=== PATIENT | male | born 1980 | race Caucasian/White ===

== ENCOUNTER 2016-08-03 15:06 | Inpatient (IN) | payer OTHER ==
--- NOTE | 2016-08-03 16:29 | ED ---
Skin/Abscess/FB HPI <Tarun Nice - Last Filed: 08/03/16 17:14> - General Source: patient, RN notes reviewed Mode of arrival: wheelchair Limitations: no limitations <Mansi Mariee - Last Filed: 08/03/16 19:28> - General Chief complaint: Skin/Abscess/Foreign Body Stated complaint: Cellulitis Time Seen by Provider: 08/03/16 16:07 - History of Present Illness Initial comments: Patient is a 28-year-old male presents to the emergency room for evaluation of right leg cellulitis. Patient's mother is present with patient. Patient's mother states the patient does have a history of on and off bilateral leg cellulitis. Patient's mother states the patient was placed on Keflex a few weeks ago with relief of symptoms. Patient's mother states that she looked at patient's legs a few days ago and they looked "normal". Patient's mother states that patient was walking down the steps today with shorts on and his right leg appeared very red and swollen. Patient states that both his legs or causing him pain. Patient denies any fevers, chills, nausea, vomiting, chest pain, shortness of breath, numbness or tingling in extremities. Patient's mother does state that patient has history of diabetes. Patient's mother states the patient is on metformin. (Mansi Mariee) - Related Data Home Medications Medication Instructions Recorded Confirmed metFORMIN HCL [Glucophage] 500 mg PO BID 01/24/16 08/03/16 Allergies Allergy/AdvReac Type Severity Reaction Status Date / Time sulfamethoxazole Allergy Unknown Verified 08/03/16 16:16 [From Bactrim] trimethoprim [From Bactrim] Allergy Unknown Verified 08/03/16 16:16 Review of Systems ROS Other: All systems not noted in ROS Statement are negative. <Tarun Nice - Last Filed: 08/03/16 17:14> ROS Other: All systems not noted in ROS Statement are negative. <Mansi Mariee - Last Filed: 08/03/16 19:28> ROS Statement: Those systems with pertinent positive or pertinent negative responses have been documented in the HPI. Past Medical History Past Medical History: CVA/TIA, Diabetes Mellitus Additional Past Medical History / Comment(s): BORN WITH BRAIN DAMAGE, MENTALLY DELAYED, SLEEP APNEA History of Any Multi-Drug Resistant Organisms: None Reported Additional Past Surgical History / Comment(s): NASAL Past Psychological History: No Psychological Hx Reported Smoking Status: Current every day smoker Past Alcohol Use History: Occasional Past Drug Use History: None Reported - Past Family History Mother Family Medical History: Diabetes Mellitus <Mansi Mariee - Last Filed: 08/03/16 19:28> General Exam <Tarun Nice - Last Filed: 08/03/16 17:14> Limitations: no limitations General appearance: alert, in no apparent distress Head exam: Present: atraumatic, normocephalic, normal inspection Eye exam: Present: normal appearance ENT exam: Present: normal exam Neck exam: Present: normal inspection Respiratory exam: Present: normal lung sounds bilaterally. Absent: respiratory distress Cardiovascular Exam: Present: regular rate, normal rhythm, normal heart sounds Right Lower Leg exam: Present: swelling, erythema (Erythema and edema of right lower leg with streaking to groin, consistent with cellulitis.) Ankle exam: Present: swelling, erythema Neurovascular tendon exam: Absent: pulse deficit (2+ dorsal pedal and posterior tibial pulses), abnormal cap refill (Capillary refill less than 2 seconds) Back exam: Present: normal inspection Neurological exam: Present: alert, oriented X3, CN II-XII intact, normal gait Psychiatric exam: Present: normal affect, normal mood Skin exam: Present: warm, dry, intact, normal color. Absent: rash <Mansi Mariee - Last Filed: 08/03/16 19:28> - General Exam Comments Initial Comments: Sitting in exam room, no acute distress. (Mansi Mariee) Medical Decision Making - Lab Data Result diagrams: 08/03/16 16:23 08/03/16 16:23 <Tarun Nice - Last Filed: 08/03/16 17:14> - Lab Data Result diagrams: 08/03/16 16:23 08/03/16 16:23 <Mansi Mariee - Last Filed: 08/03/16 19:28> - Medical Decision Making Patient reevaluated by myself, Dr. Nice. Patient does have erythema of the right lower leg with streaking to the right groin. Consistent with cellulitis. Patient has elevated white blood cell count and does meet sepsis criteria. IV and about X have been started. Lactic acid level drawn. Case discussed in detail with Dr. matta, who will admit for Dr. Helena Banks. Patient and family updated. (Tarun Nice) Patient is a 36-year-old male presents emergency room for evaluation of right leg cellulitis. Elevated WBC. Patient meet sepsis criteria. Lactic acid within normal limits. Patient be started on IV antibiotics. Dr. Nice discussed case with Dr. Dickerson who agreed to admit patient. Patient and family were updated on plan. (Mansi Mariee) - Lab Data Lab Results 08/03/16 08/03/16 08/03/16 Range/Units 16:23 16:23 16:44 WBC 19.0 H (3.8-10.6) k/uL RBC 5.18 (4.30-5.90) m/uL Hgb 14.5 (13.0-17.5) gm/dL Hct 43.4 (39.0-53.0) % MCV 83.8 (80.0-100.0) fL MCH 27.9 (25.0-35.0) pg MCHC 33.3 (31.0-37.0) g/dL RDW 14.9 (11.5-15.5) % Plt Count 216 (150-450) k/uL Neutrophils % 87 % Lymphocytes % 7 % Monocytes % 4 % Eosinophils % 0 % Basophils % 0 % Neutrophils # 16.5 H (1.3-7.7) k/uL Lymphocytes # 1.3 (1.0-4.8) k/uL Monocytes # 0.7 (0-1.0) k/uL Eosinophils # 0.1 (0-0.7) k/uL Basophils # 0.1 (0-0.2) k/uL Sodium 142 (137-145) mmol/L Potassium 3.9 (3.5-5.1) mmol/L Chloride 103 (98-107) mmol/L Carbon Dioxide 25 (22-30) mmol/L Anion Gap 14 mmol/L BUN 27 H (9-20) mg/dL Creatinine 1.36 H (0.66-1.25) mg/dL Est GFR (MDRD) Af Amer >60 (>60 ml/min/1.73 sqM) Est GFR (MDRD) Non-Af 59 (>60 ml/min/1.73 sqM) Glucose 189 H (74-99) mg/dL Plasma Lactic Acid Yong (0.7-2.0) mmol/L Calcium 9.2 (8.4-10.2) mg/dL Total Bilirubin 1.1 (0.2-1.3) mg/dL AST 30 (17-59) U/L ALT 39 (21-72) U/L Alkaline Phosphatase 81 (38-126) U/L Total Protein 7.1 (6.3-8.2) g/dL Albumin 3.7 (3.5-5.0) g/dL Urine Color Yellow Urine Appearance Cloudy (Clear) Urine pH 6.0 (5.0-8.0) Ur Specific Allison 1.027 (1.001-1.035) Urine Protein 2+ H (Negative) Urine Glucose (UA) 1+ H (Negative) Urine Ketones Negative (Negative) Urine Blood Trace H (Negative) Urine Nitrate Negative (Negative) Urine Bilirubin Negative (Negative) Urine Urobilinogen 2.0 (<2.0) mg/dL Ur Leukocyte Esterase Negative (Negative) Urine RBC 1 (0-5) /hpf Urine WBC 6 H (0-5) /hpf Hyaline Casts 2 (0-2) /lpf Granular Casts 95 (0) /lpf Urine Mucus Many H (None) /hpf 08/03/16 Range/Units 17:29 WBC (3.8-10.6) k/uL RBC (4.30-5.90) m/uL Hgb (13.0-17.5) gm/dL Hct (39.0-53.0) % MCV (80.0-100.0) fL MCH (25.0-35.0) pg MCHC (31.0-37.0) g/dL RDW (11.5-15.5) % Plt Count (150-450) k/uL Neutrophils % % Lymphocytes % % Monocytes % % Eosinophils % % Basophils % % Neutrophils # (1.3-7.7) k/uL Lymphocytes # (1.0-4.8) k/uL Monocytes # (0-1.0) k/uL Eosinophils # (0-0.7) k/uL Basophils # (0-0.2) k/uL Sodium (137-145) mmol/L Potassium (3.5-5.1) mmol/L Chloride (98-107) mmol/L Carbon Dioxide (22-30) mmol/L Anion Gap mmol/L BUN (9-20) mg/dL Creatinine (0.66-1.25) mg/dL Est GFR (MDRD) Af Amer (>60 ml/min/1.73 sqM) Est GFR (MDRD) Non-Af (>60 ml/min/1.73 sqM) Glucose (74-99) mg/dL Plasma Lactic Acid Yong 1.5 (0.7-2.0) mmol/L Calcium (8.4-10.2) mg/dL Total Bilirubin (0.2-1.3) mg/dL AST (17-59) U/L ALT (21-72) U/L Alkaline Phosphatase (38-126) U/L Total Protein (6.3-8.2) g/dL Albumin (3.5-5.0) g/dL Urine Color Urine Appearance (Clear) Urine pH (5.0-8.0) Ur Specific Allison (1.001-1.035) Urine Protein (Negative) Urine Glucose (UA) (Negative) Urine Ketones (Negative) Urine Blood (Negative) Urine Nitrate (Negative) Urine Bilirubin (Negative) Urine Urobilinogen (<2.0) mg/dL Ur Leukocyte Esterase (Negative) Urine RBC (0-5) /hpf Urine WBC (0-5) /hpf Hyaline Casts (0-2) /lpf Granular Casts (0) /lpf Urine Mucus (None) /hpf Disposition <Tarun Nice - Last Filed: 08/03/16 17:14> Decision Date: 08/03/16 <Mansi Mariee - Last Filed: 08/03/16 19:28> Clinical Impression: Cellulitis of right lower leg, Sepsis Disposition: ADMITTED IP TO THIS [facility] Condition: Stable
[2016-08-03 16:47] LABS: Basophils # (A) 0.1 k/uL (0-0.2); Basophils % (A) 0 %; CH 27.4; CHCM 32.8; Eosinophils # (A) 0.1 k/uL (0-0.7); Eosinophils % (A) 0 %; HCT 43.4 % (39.0-53.0); HDW 2.62; HGB 14.5 gm/dL (13.0-17.5); Luc # (Auto) 0.39; Luc % (Auto) 2; Lymphocytes # (A) 1.3 k/uL (1.0-4.8); Lymphocytes % (A) 7 %; MCH 27.9 pg (25.0-35.0); MCHC 33.3 g/dL (31.0-37.0); MCV 83.8 fL (80.0-100.0); Mean Platelet Volume 7.9; Monocytes # (A) 0.7 k/uL (0-1.0); Monocytes % (A) 4 %; Neutrophils # (A) 16.5 k/uL (1.3-7.7); Neutrophils % (A) 87 %; RBC 5.18 m/uL (4.30-5.90); RDW 14.9 % (11.5-15.5); WBC (Perox) 19.34
[2016-08-03 16:56] LABS: ALT 39 U/L (21-72); AST 30 U/L (17-59); Alkaline Phosphatase 81 U/L (38-126); Anion Gap 14 mmol/L; Blood Urea Nitrogen 27 mg/dL (9-20); Calcium 9.2 mg/dL (8.4-10.2); Carbon Dioxide 25 mmol/L (22-30); Chloride 103 mmol/L (98-107); Glucose 189 mg/dL (74-99); Non-African American GFR(MDRD) 59 (>60 ml/min/1.73 sqM); Potassium 3.9 mmol/L (3.5-5.1); Sodium 142 mmol/L (137-145); Total Bilirubin 1.1 mg/dL (0.2-1.3); Total Protein 7.1 g/dL (6.3-8.2)
[2016-08-03 17:01] LABS: Appearance,Urine Cloudy (Clear); Bilirubin,Urine Negative (Negative); Glucose,Urine (UA) 1+ (Negative); Granular Casts,Urine 95 /lpf (0); Ketones,Urine Negative (Negative); Leukocyte Esterase,Urine Negative (Negative); Mucus,Urine Many /hpf; Nitrite,Urine Negative (Negative); Protein,Urine 2+ (Negative); RBC,Urine 1 /hpf (0-5); Specific Gravity,Urine 1.027 (1.001-1.035); UA Billing (MACRO vs. MICRO) MICRO; WBC,Urine 6 /hpf (0-5)
[2016-08-03] MEDS ORDERED: IV VANCOMYCIN PER PHARMACY 1 EACH MISC MISCELLANE PRN (17:05)
[2016-08-03] MEDS ORDERED: AMPICILLIN-SULBACTAM 3 GM in SODIUM CHLORIDE 0.9% 100 ML IVPB STA (17:05)
[2016-08-03] MEDS ORDERED: SODIUM CHLORIDE 0.9% 1,000 ML IV STA (17:13)
[2016-08-03] MEDS ORDERED: VANCOMYCIN 2,000 MG in SODIUM CHLORIDE 0.9% 500 ML IVPB STA (17:15)
[2016-08-03] MEDS ORDERED: SODIUM CHLORIDE 0.9% 1,000 ML IV SCH (18:30)
[2016-08-03] MEDS ORDERED: ACETAMINOPHEN TAB 500 MG TAB PO STA (18:56)
[2016-08-03 19:45] VITALS: BMI 37.5
[2016-08-03] MEDS: SODIUM CHLORIDE 0.9% 1,000 ML IV SCH (19:46)
[2016-08-03 20:48] LABS: Glucose,Whole Blood 153 mg/dL (75-99)
[2016-08-03 21:18] LABS: Partial Thromboplastin Time 24.4 sec (22.0-30.0); Prothrombin Time 10.5 sec (9.0-12.0)
[2016-08-03 21:28] LABS: Creatine Kinase 230 U/L (55-170)
[2016-08-03 21:41] LABS: Creatine Kinase MB 1.8 ng/mL (0.0-2.4); Troponin I <0.012 ng/mL (0.000-0.034)
[2016-08-03] MEDS: ENOXAPARIN 40 MG/0.4 ML SYRINGE SQ SCH (22:21)
[2016-08-03] MEDS: metFORMIN 500 MG TAB PO SCH (22:21)
[2016-08-03] MEDS: Acetaminophen-Codeine 300-30mg TAB PO PRN (22:22)
[2016-08-03] MEDS: INSULIN LISPRO (humaLOG) 300 UNIT/3 ML VIAL SQ SCH (23:46)
[2016-08-04 02:12] LABS: Amorphous Sediment,Urine Rare /hpf; Appearance,Urine Cloudy (Clear); Bilirubin,Urine Negative (Negative); Glucose,Urine (UA) 3+ (Negative); Ketones,Urine Negative (Negative); Leukocyte Esterase,Urine Negative (Negative); Mucus,Urine Rare /hpf; Nitrite,Urine Negative (Negative); Particle Count 10203; Protein,Urine 1+ (Negative); RBC,Urine 1 /hpf (0-5); Specific Gravity,Urine 1.028 (1.001-1.035); UA Billing (MACRO vs. MICRO) MICRO; WBC,Urine 2 /hpf (0-5)
[2016-08-04] MEDS: SODIUM CHLORIDE 0.9% 1,000 ML IV SCH ×4 (05:13→20:51)
[2016-08-04] MEDS: VANCOMYCIN 2,000 MG in SODIUM CHLORIDE 0.9% 500 ML IVPB SCH ×2 (05:30→18:21)
[2016-08-04 07:51] LABS: Anion Gap 9 mmol/L; Blood Urea Nitrogen 18 mg/dL (9-20); Calcium 8.1 mg/dL (8.4-10.2); Carbon Dioxide 25 mmol/L (22-30); Chloride 106 mmol/L (98-107); Glucose 171 mg/dL (74-99); Non-African American GFR(MDRD) >60 (>60 ml/min/1.73 sqM); Potassium 3.8 mmol/L (3.5-5.1); Sodium 140 mmol/L (137-145)
[2016-08-04] MEDS: ENOXAPARIN 40 MG/0.4 ML SYRINGE SQ SCH (08:59)
[2016-08-04] MEDS: metFORMIN 500 MG TAB PO SCH ×2 (08:59→18:22)
[2016-08-04] MEDS: INSULIN LISPRO (humaLOG) 300 UNIT/3 ML VIAL SQ SCH ×4 (09:00→20:29)
[2016-08-04 11:52] LABS: Glucose,Whole Blood 152 mg/dL (75-99)
--- NOTE | 2016-08-04 12:14 | HP ---
DATE OF ADMISSION: 08/03/2016 PRESENTING COMPLAINT: Cellulitis. HISTORY OF PRESENTING COMPLAINT: This is a 36-year-old patient of Dr. Decker who is mentally disabled from , history of diabetes, has had prior cellulitis but has increasing redness especially at the right lower extremity, painful and redness going up to the thighs. The patient lives with his mother. Patient is slow to give history but able to give a basic history. REVIEW OF SYSTEMS: Febrile, tired. HEENT: None. RESPIRATORY: None. CARDIOVASCULAR: None. GASTROINTESTINAL: None. GENITOURINARY: None. MUSCULOSKELETAL: As above. DERMATOLOGICAL: Above. LYMPHATICS: None. PSYCHIATRY: Patient is slow. NEUROLOGICAL: None. PAST MEDICAL HISTORY: Questionable stroke, diabetes mellitus type 2, born with brain damage, mentally delayed, sleep apnea. SOCIAL HISTORY: Smoker, lives with his mother. Family history of diabetes. HOME MEDICATIONS: Metformin 500 mg p.o. b.i.d. ALLERGIES TO BACTRIM. On examination, temperature 101.4, pulse 93, respirations 18, blood pressure 123/57, pulse ox 98% on room air. GENERAL APPEARANCE: Overweight, body mass index of 37, lying in bed. EYES: Pupils equal. Conjunctivae normal. Strabismus is present. NECK: JVD not raised. Mass not palpable. RESPIRATORY: Effort normal. Lungs are clear. CARDIOVASCULAR: First and second sounds normal. Mild edema. ABDOMEN: Soft. Liver and spleen not palpable. LYMPHATIC: No lymph node palpable in the neck or axillae. PSYCHIATRY: Patient able to answer simple questions. DERMATOLOGICAL: Patient has dry skin and cellulitis especially of the right lower extremity extending up to the mid-thigh, scaly skin. INVESTIGATIONS: White count 19, hemoglobin 18.5. Potassium 3.9. BUN 27, creatinine 1.36. ASSESSMENT: 1. Acute severe cellulitis with sepsis, present at admission in a diabetic. 2. Diabetes mellitus type 2, on oral hypoglycemic. 3. Acute renal failure. Patient's previous creatinine was 0.9 in January of last year. 4. Obesity, body mass index of 37.5. 5. Developmental delay from . PLAN: Patient started on vancomycin, pharmacy to dose vancomycin. Continue Silvadene cream. Metformin will be resumed. Will hydrate the patient. Repeat electrolytes. Care was discussed with the patient. Questions were answered. DVT prophylaxis.
[2016-08-04 13:25] LABS: Hemoglobin A1C 6.8 % (4.2-6.1)
[2016-08-04 17:39] LABS: Glucose,Whole Blood 124 mg/dL (75-99)
[2016-08-04 20:12] LABS: Glucose,Whole Blood 183 mg/dL (75-99)
[2016-08-05] MEDS: SODIUM CHLORIDE 0.9% 1,000 ML IV SCH ×4 (04:56→23:30)
[2016-08-05] MEDS ORDERED: VANCOMYCIN TROUGH DUE 1 EACH MISC MISCELLANE ONE (05:00)
[2016-08-05] MEDS: VANCOMYCIN 2,000 MG in SODIUM CHLORIDE 0.9% 500 ML IVPB SCH (05:36)
[2016-08-05 05:54] LABS: Basophils # (A) 0.1 k/uL (0-0.2); Basophils % (A) 0 %; CH 27.1; CHCM 32.1; Eosinophils # (A) 0.2 k/uL (0-0.7); Eosinophils % (A) 1 %; HCT 35.3 % (39.0-53.0); HDW 2.52; HGB 11.6 gm/dL (13.0-17.5); Luc # (Auto) 0.38; Luc % (Auto) 2; Lymphocytes % (A) 12 %; MCH 27.9 pg (25.0-35.0); MCHC 32.8 g/dL (31.0-37.0); MCV 84.9 fL (80.0-100.0); Mean Platelet Volume 7.7; Monocytes % (A) 6 %; Neutrophils # (A) 12.4 k/uL (1.3-7.7); Neutrophils % (A) 78 %; RBC 4.16 m/uL (4.30-5.90); RDW 14.8 % (11.5-15.5); WBC 15.9 k/uL (3.8-10.6)
[2016-08-05 05:58] LABS: Anion Gap 9 mmol/L; Blood Urea Nitrogen 10 mg/dL (9-20); Calcium 8.1 mg/dL (8.4-10.2); Carbon Dioxide 23 mmol/L (22-30); Chloride 105 mmol/L (98-107); Glucose 141 mg/dL (74-99); Non-African American GFR(MDRD) >60 (>60 ml/min/1.73 sqM); Potassium 3.6 mmol/L (3.5-5.1); Sodium 137 mmol/L (137-145)
[2016-08-05] MEDS: metFORMIN 500 MG TAB PO SCH ×2 (07:24→17:58)
[2016-08-05] MEDS: Acetaminophen-Codeine 300-30mg TAB PO PRN (07:24)
[2016-08-05] MEDS: INSULIN LISPRO (humaLOG) 300 UNIT/3 ML VIAL SQ SCH ×4 (07:45→21:01)
[2016-08-05 08:15] LABS: Glucose,Whole Blood 151 mg/dL (75-99)
[2016-08-05] MEDS: ENOXAPARIN 40 MG/0.4 ML SYRINGE SQ SCH (09:50)
--- NOTE | 2016-08-05 11:10 | PN ---
DATE OF SERVICE: 08/04/2016 PRESENTING COMPLAINT: Cellulitis. INTERVAL HISTORY: This patient presented with severe cellulitis right lower extremity, slow to respond, getting Silvadene cream, antibiotics. Pain is still present. Tolerating his diet. Review of systems done for constitutional, cardiovascular, GI, pulmonary; relevant findings as above. Current medications are reviewed that include IV vancomycin. On examination, temperature T-max 101.4, pulse 80, respirations 18, blood pressure 120/68, pulse ox 94% on room air. GENERAL APPEARANCE: Lying in bed, awake. EYES: Pupils equal. Conjunctivae normal. NECK: JVD not raised. Mass not palpable. RESPIRATORY: Effort normal. Lungs are clear. CARDIOVASCULAR: First and second sounds normal. No edema. ABDOMEN: Soft, nontender. Liver and spleen not palpable. Right lower extremity cellulitis present, slow to respond. INVESTIGATIONS: Potassium 3.2, BUN and creatinine normal. Accu-Cheks are noted. Blood cultures negative until now. ASSESSMENT: 1. Acute severe cellulitis with sepsis present on admission in a diabetic, slow to respond. 2. Type 2 diabetes mellitus, on oral hyperglycemics. 3. Acute renal failure, probably acute tubular necrosis from sepsis, present on admission with improvement. 4. Obesity, body mass index 37.5. 5. ( ) from . PLAN: Continue current medication and treatment plan. Care was discussed with the patient. Follow.
[2016-08-05 12:25] LABS: Glucose,Whole Blood 148 mg/dL (75-99)
[2016-08-05 17:32] LABS: Glucose,Whole Blood 161 mg/dL (75-99)
[2016-08-05] MEDS: VANCOMYCIN 2,250 MG in SODIUM CHLORIDE 0.9% 500 ML IVPB SCH (18:10)
[2016-08-05] MEDS: SILVER sulfADIAZINE Cream 400 GM 1 APPLIC APPLIC TOPICAL SCH (19:52)
[2016-08-05] MEDS: NAPROXEN 250 MG TAB PO SCH (19:52)
[2016-08-05 20:40] LABS: Glucose,Whole Blood 151 mg/dL (75-99)
--- NOTE | 2016-08-05 22:56 | PN ---
DATE OF SERVICE: 08/05/2016 PRESENTING COMPLAINT: Right leg cellulitis. INTERVAL HISTORY: Patient presented with severe cellulitis, right lower extremity, which is getting a bit better with Silvadene cream and antibiotics. Pain is getting better controlled. Review of systems done for constitutional, cardiovascular, GI, pulmonary; relevant findings as above. Current medications are reviewed that include IV vancomycin. On examination, temperature 100.2, pulse 56, respiration 20, blood pressure 116/61, pulse ox 92% on room air. GENERAL APPEARANCE: Lying in bed. Comfortable. EYES: Pupils equal. Conjunctivae normal. NECK: JVD not raised. Mass not palpable. RESPIRATORY: Effort normal. Lungs are clear. CARDIOVASCULAR: First and second sounds normal. No edema. ABDOMEN: Soft, nontender. Liver and spleen not palpable. RIGHT LOWER EXTREMITY: Decreased redness. Decreased tenderness and swelling. PSYCHIATRY: Alert and oriented x3. Mood and affect normal. INVESTIGATIONS: White count 15.9. Potassium 3.6. BUN and creatinine are normal. ASSESSMENT: 1. Acute severe cellulitis with sepsis, right lower extremity, present on admission, in a diabetic. Slowly improving clinically but slow to respond. 2. Diabetes mellitus, type 2, on oral hypoglycemic. 3. Acute renal failure, probably acute tubular necrosis from sepsis, present on admission, with improvement. 4. Obesity; body mass index of 37.5. 5. Mental retardation from . PLAN: Continue with current medication and treatment plan. I will also have the nurse apply an Sarath wrap and use Silvadene the entire length. Naproxen will be added for anti-inflammatory effect. Will follow.
[2016-08-06] MEDS: SODIUM CHLORIDE 0.9% 1,000 ML IV SCH ×2 (05:22→13:18)
[2016-08-06] MEDS: VANCOMYCIN 2,250 MG in SODIUM CHLORIDE 0.9% 500 ML IVPB SCH ×2 (05:26→17:38)
[2016-08-06 07:29] LABS: Glucose,Whole Blood 138 mg/dL (75-99)
[2016-08-06] MEDS: INSULIN LISPRO (humaLOG) 300 UNIT/3 ML VIAL SQ SCH ×4 (07:44→21:29)
[2016-08-06] MEDS: ENOXAPARIN 40 MG/0.4 ML SYRINGE SQ SCH (07:46)
[2016-08-06] MEDS: metFORMIN 500 MG TAB PO SCH ×2 (07:46→17:39)
[2016-08-06] MEDS: NAPROXEN 250 MG TAB PO SCH ×2 (07:46→21:28)
[2016-08-06] MEDS: SILVER sulfADIAZINE Cream 400 GM 1 APPLIC APPLIC TOPICAL SCH ×2 (07:47→21:30)
[2016-08-06 08:58] LABS: Basophils # (A) 0.1 k/uL (0-0.2); Basophils % (A) 1 %; CH 27.1; CHCM 31.6; Eosinophils # (A) 0.4 k/uL (0-0.7); Eosinophils % (A) 3 %; HCT 37.1 % (39.0-53.0); HDW 2.53; HGB 11.8 gm/dL (13.0-17.5); Luc # (Auto) 0.41; Luc % (Auto) 3; Lymphocytes # (A) 2.1 k/uL (1.0-4.8); Lymphocytes % (A) 14 %; MCH 27.3 pg (25.0-35.0); MCHC 31.7 g/dL (31.0-37.0); MCV 86.2 fL (80.0-100.0); Mean Platelet Volume 7.9; Monocytes # (A) 0.9 k/uL (0-1.0); Monocytes % (A) 6 %; Neutrophils # (A) 10.9 k/uL (1.3-7.7); Neutrophils % (A) 74 %; RDW 14.7 % (11.5-15.5); WBC 14.8 k/uL (3.8-10.6); WBC (Perox) 13.98
[2016-08-06 11:31] LABS: Glucose,Whole Blood 136 mg/dL (75-99)
[2016-08-06 17:26] LABS: Glucose,Whole Blood 106 mg/dL (75-99)
[2016-08-06 20:11] LABS: Glucose,Whole Blood 135 mg/dL (75-99)
[2016-08-07] MEDS: SODIUM CHLORIDE 0.9% 1,000 ML IV SCH ×3 (05:23→12:22)
[2016-08-07] MEDS: VANCOMYCIN 2,250 MG in SODIUM CHLORIDE 0.9% 500 ML IVPB SCH ×2 (05:25→17:25)
[2016-08-07 07:12] LABS: Glucose,Whole Blood 116 mg/dL (75-99)
[2016-08-07 08:12] LABS: Anion Gap 9 mmol/L; Blood Urea Nitrogen 10 mg/dL (9-20); Calcium 8.2 mg/dL (8.4-10.2); Carbon Dioxide 24 mmol/L (22-30); Chloride 110 mmol/L (98-107); Glucose 127 mg/dL (74-99); Non-African American GFR(MDRD) >60 (>60 ml/min/1.73 sqM); Potassium 4.2 mmol/L (3.5-5.1); Sodium 143 mmol/L (137-145)
[2016-08-07 08:14] LABS: Basophils # (A) 0.1 k/uL (0-0.2); Basophils % (A) 1 %; CH 27.1; CHCM 31.7; Eosinophils # (A) 0.4 k/uL (0-0.7); Eosinophils % (A) 3 %; HCT 36.3 % (39.0-53.0); HGB 11.6 gm/dL (13.0-17.5); Luc % (Auto) 3; Lymphocytes # (A) 2.1 k/uL (1.0-4.8); Lymphocytes % (A) 14 %; MCH 27.3 pg (25.0-35.0); MCHC 31.9 g/dL (31.0-37.0); MCV 85.7 fL (80.0-100.0); Mean Platelet Volume 7.4; Monocytes # (A) 0.8 k/uL (0-1.0); Monocytes % (A) 6 %; Neutrophils # (A) 10.7 k/uL (1.3-7.7); Neutrophils % (A) 74 %; RBC 4.24 m/uL (4.30-5.90); RDW 14.6 % (11.5-15.5); WBC 14.5 k/uL (3.8-10.6); WBC (Perox) 15.32
[2016-08-07] MEDS: SILVER sulfADIAZINE Cream 400 GM 1 APPLIC APPLIC TOPICAL SCH ×2 (08:56→21:02)
[2016-08-07] MEDS: metFORMIN 500 MG TAB PO SCH ×2 (08:56→17:25)
[2016-08-07] MEDS: INSULIN LISPRO (humaLOG) 300 UNIT/3 ML VIAL SQ SCH ×4 (08:56→21:01)
[2016-08-07] MEDS: ENOXAPARIN 40 MG/0.4 ML SYRINGE SQ SCH (08:56)
[2016-08-07] MEDS: NAPROXEN 250 MG TAB PO SCH ×2 (08:57→21:02)
--- NOTE | 2016-08-07 11:24 | PN ---
DATE OF SERVICE: 08/06/2016 PRESENTING COMPLAINT: Right leg cellulitis. INTERVAL HISTORY: This patient with right leg cellulitis is getting better. Pain is much better controlled, ( ) Naproxen. Getting Silvadene cream. Tolerating his diet. REVIEW OF SYSTEMS: done for constitutional, cardiovascular, GI, pulmonary; relevant findings as above. Current medications are reviewed. On examination, temperature 99.6, pulse 75, respiratory rate 18, blood pressure 153/70, pulse ox 92% on room air. GENERAL APPEARANCE: Lying in bed, comfortable. EYES: Pupils equal. Conjunctivae normal. NECK: JVD not raised. Mass not palpable. RESPIRATORY: Effort normal. Lungs are clear. CARDIOVASCULAR: First and second sounds normal. No edema. ABDOMEN: Soft, nontender. Liver and spleen not palpable. PSYCHIATRY: Awake, answering questions. Right lower extremity cellulitis much improved. INVESTIGATIONS: White count 14.8, hemoglobin 11.8 Accu-Cheks are noted. ASSESSMENT: 1. Acute severe cellulitis with sepsis right lower extremity present on admission, which continues to improve. White count continues to come down. 2. Type 2 diabetes mellitus, on oral hypoglycemics. 3. Acute renal failure, probably acute tubular necrosis from sepsis present on admission, resolved. 4. Obesity, body mass index of 37.5. 5. Mental retardation from . PLAN: Continue current medication and treatment plan. The patient definitely doing much better.
[2016-08-07 12:14] LABS: Glucose,Whole Blood 132 mg/dL (75-99)
[2016-08-07] MEDS: FUROSEMIDE 10 MG/ML 2 ML VIAL IV SCH ×2 (12:47→17:25)
[2016-08-07 17:01] LABS: Glucose,Whole Blood 123 mg/dL (75-99)
[2016-08-07 20:29] LABS: Glucose,Whole Blood 119 mg/dL (75-99)
[2016-08-08] MEDS ORDERED: VANCOMYCIN TROUGH DUE 1 EACH MISC MISCELLANE ONE (05:30)
[2016-08-08] MEDS: VANCOMYCIN 2,250 MG in SODIUM CHLORIDE 0.9% 500 ML IVPB SCH (05:58)
[2016-08-08 07:40] LABS: Glucose,Whole Blood 110 mg/dL (75-99)
[2016-08-08 07:51] VITALS: BP 118/58; RESP 18; TEMP 97.3
[2016-08-08] MEDS: metFORMIN 500 MG TAB PO SCH (08:26)
[2016-08-08] MEDS: INSULIN LISPRO (humaLOG) 300 UNIT/3 ML VIAL SQ SCH ×2 (08:26→11:42)
[2016-08-08] MEDS: NAPROXEN 250 MG TAB PO SCH (08:27)
[2016-08-08] MEDS: ENOXAPARIN 40 MG/0.4 ML SYRINGE SQ SCH (08:27)
[2016-08-08 11:42] LABS: Glucose,Whole Blood 110 mg/dL (75-99)
[2016-08-08] MEDS: SILVER sulfADIAZINE Cream 400 GM 1 APPLIC APPLIC TOPICAL SCH (11:42)
[2016-08-08 12:03] LABS: CH 27.3; CHCM 31.3; HCT 38.3 % (39.0-53.0); HDW 2.53; HGB 11.9 gm/dL (13.0-17.5); Hypochromasia Slight; MCH 27.2 pg (25.0-35.0); MCV 87.7 fL (80.0-100.0); Mean Platelet Volume 9.5; RBC 4.36 m/uL (4.30-5.90); RDW 14.9 % (11.5-15.5); WBC 13.7 k/uL (3.8-10.6)
[2016-08-08 12:18] LABS: Anion Gap 11 mmol/L; Blood Urea Nitrogen 11 mg/dL (9-20); Calcium 8.4 mg/dL (8.4-10.2); Carbon Dioxide 27 mmol/L (22-30); Chloride 104 mmol/L (98-107); Glucose 121 mg/dL (74-99); Non-African American GFR(MDRD) >60 (>60 ml/min/1.73 sqM); Sodium 142 mmol/L (137-145)
--- NOTE | 2016-08-08 14:52 | PN ---
DATE OF SERVICE: 08/07/2016 PRESENTING COMPLAINT: Right leg cellulitis. INTERVAL HISTORY: This patient was seen by me yesterday morning on 08/07/2016. I am doing the dictation today. Patient presented with right leg cellulitis. The patient has been getting some edema, probably from IV fluids. Pain is better controlled. Tolerating his diet. Review of systems done for constitutional, cardiovascular, GI, pulmonary; relevant findings as above. Current medications are reviewed. On examination, temperature 97.4, pulse 94, respirations 18, blood pressure 119/62, pulse ox 95% on room air. GENERAL APPEARANCE: Lying in bed, comfortable. EYES: Pupils equal. Conjunctivae normal. NECK: JVD not raised. Mass not. RESPIRATORY: Effort normal. LUNGS: Clear. CARDIOVASCULAR: First and second sounds are normal. Mild edema. ABDOMEN: Soft, nontender. Liver and spleen not palpable. PSYCHIATRY: Awake, answering questions. Right leg redness. White count 14.5. Potassium 4.2. ASSESSMENT: 1. Acute severe cellulitis with sepsis right lower extremity, present on admission, continues to improve slowly. 2. Diabetes mellitus type 2, on oral hypoglycemic. 3. Acute renal failure, probably acute tubular necrosis from sepsis, present on admission, resolved. 4. Obesity, body mass index of 37.5. 5. Mental retardation, from . 6. A bit of fluid overload from IV fluids. PLAN: Will discontinue the IV fluids and give 2 small doses of Lasix 20. Repeat labs in the morning.
[2016-08-08 16:50] VITALS: PULSE 64
--- NOTE | 2016-08-09 09:23 | DS ---
DATE OF ADMISSION: 08/03/2016 DATE OF DISCHARGE: 08/08/2016 FINAL DIAGNOSIS(ES): 1. Acute severe cellulitis with sepsis right lower extremity present at admission. 2. Diabetes mellitus type 2, on oral hypoglycemic. 3. Acute renal failure, probably acute tubular necrosis from sepsis, present on admission. 4. Obesity, body mass index of 37.5. Follow with family doctor as an outpatient. 5. Mental retardation from . 6. Fluid overload from IV fluids. HOSPITAL COURSE: This patient presented with significant cellulitis right lower extremity has done very well with Silvadene cream and vancomycin. The patient's blood culture was negative. Patient also used Kerlix and Sarath wrap. On examination, the right lower extremity redness greatly improved. DISCHARGE MEDICATIONS: 1. Metformin 500 mg p.o. b.i.d. 2. Doxycycline 100 mg p.o. q.12 20 capsules. 3. Naproxen 250 mg p.o. b.i.d. 14 tablets. 4. Silvadene cream topical b.i.d. with Kerlix and Sarath wrap. Follow with Dr. Brianne Dillon in one week. Dressing changes as ordered.
== END 2016-08-08 18:21 | disposition home or self-care (01) | DRG 871 ==
LOC: EC 15:06 → 5MS5E 18:29
PROVIDERS: ADMIT Hospitalist; ATTEND Hospitalist
DX: A41.9 Sepsis, unspecified organism (principal); N17.0 Acute kidney failure with tubular necrosis; L03.115 Cellulitis of right lower limb; E87.70 Fluid overload, unspecified; E11.9 Type 2 diabetes mellitus without complications; E66.9 Obesity, unspecified; F17.200 Nicotine dependence, unspecified, uncomplicated; G47.30 Sleep apnea, unspecified; R65.20 Severe sepsis without septic shock; F79 Unspecified intellectual disabilities; T50.995A Adverse effect of other drugs, medicaments and biological substances, initial encounter; Z68.37 Body mass index [BMI] 37.0-37.9, adult; Z88.2 Allergy status to sulfonamides; Z88.1 Allergy status to other antibiotic agents; Z79.84 Long term (current) use of oral hypoglycemic drugs
CPT/HCPCS: 36415; 80048; 80053; 80202; 81001; 82533; 82550; 82553; 83036; 83605; 84484; 85025; 85027; 85610; 85730; 87040; 87086; 96365; 99284

== ENCOUNTER 2016-08-19 15:13 | Inpatient (IN) | payer OTHER ==
[2016-08-19] MEDS ORDERED: IV VANCOMYCIN PER PHARMACY 1 EACH MISC MISCELLANE PRN (16:02)
[2016-08-19] MEDS ORDERED: IBUPROFEN 600 MG TAB PO STA (16:02)
[2016-08-19] MEDS ORDERED: VANCOMYCIN 2,000 MG in SODIUM CHLORIDE 0.9% 500 ML IVPB STA (16:10)
[2016-08-19] MEDS: SODIUM CHLORIDE 0.9% 1,000 ML IV SCH ×4 (16:19→20:32)
--- NOTE | 2016-08-19 16:33 | ED ---
General Adult HPI - General Chief complaint: Extremity Injury, Lower Stated complaint: leg infection-sent by Time Seen by Provider: 08/19/16 15:40 Source: patient, family, RN notes reviewed, old records reviewed Mode of arrival: ambulatory Limitations: no limitations - History of Present Illness Initial comments: Chief complaint history of present illness a 36-year-old mentally challenged male here with his mother. Recently the patient was in hospital because of cellulitis to his right lower extremity. He is on doxycycline at home. Is actually improving. The visiting nurse came to the home today over a large pointing abscess in the right popliteal area medial aspect. With localized induration and cellulitis. - Related Data Home Medications Medication Instructions Recorded Confirmed SILVER sulfADIAZINE CREAM 1 applic TOPICAL DAILY 08/19/16 08/19/16 [Silvadene Cream] Allergies Allergy/AdvReac Type Severity Reaction Status Date / Time sulfamethoxazole Allergy Unknown Verified 08/19/16 16:06 [From Bactrim] trimethoprim [From Bactrim] Allergy Unknown Verified 08/19/16 16:06 Review of Systems ROS Statement: Those systems with pertinent positive or pertinent negative responses have been documented in the HPI. Review of systems patient denies headache chest pain shortness breath GI/ problems. All systems are reviewed. Past medical problems significant for CVA , medication treated diabetes mellitus, he was born with brain damage. But is high functioning MR. Surgeries include soft palate for snoring. Family history grandmother had lung cancer. Patient has ALLERGIES to sulfamethoxazole. He does smoke trying to stop mother trying to help. Drinks alcohol rarely socially. ROS Other: All systems not noted in ROS Statement are negative. Past Medical History Past Medical History: CVA/TIA, Diabetes Mellitus Additional Past Medical History / Comment(s): BORN WITH BRAIN DAMAGE, MENTALLY DELAYED, SLEEP APNEA History of Any Multi-Drug Resistant Organisms: None Reported Additional Past Surgical History / Comment(s): NASAL Past Anesthesia/Blood Transfusion Reactions: Unable to Obtain Past Psychological History: No Psychological Hx Reported Smoking Status: Current every day smoker Past Alcohol Use History: Occasional Past Drug Use History: None Reported - Past Family History Mother Family Medical History: Diabetes Mellitus General Exam - General Exam Comments Initial Comments: General: The patient is awake and alert, in no distress, and does not appear acutely ill. Has no complaints. Does not even saline large abscess behind his right knee is uncomfortable. States he never noticed it. Patient is mentally challenged. Vital signs showed temperature 97.7 pulse 90 respiratory rate 16 pulse ox 90% room air blood pressure 117/68 Eye: Pupils are equal, round and reactive to light, extra-ocular movements are intact ; there is normal conjunctiva bilaterally. No signs of icterus. Ears, nose, mouth and throat: There are moist mucous membranes Neck: The neck is supple, there is no tenderness Cardiovascular: There is a regular rate and rhythm. No murmur, rub or gallop is appreciated. Respiratory: Lungs are clear to auscultation, respirations are non-labored, breath sounds are equal. No wheezes, stridor, rales, or rhonchi. Gastrointestinal: Soft, non-distended, non-tender abdomen without masses or organomegaly noted. There is no rebound or guarding present. No CVA tenderness. Bowel sounds are unremarkable. Back: There is no tenderness to palpation in the midline. There is no obvious deformity. No rashes noted. Musculoskeletal: Cellulitis of the right lower extremity is significantly improved after discharging continues on doxycycline but he has developed since discharge a large abscess in the right popliteal region. With localized cellulitis and induration. Neurological: Patient walks talks no evidence of any neurological deficits. He does have mental retardation. Skin: Improving cellulitis right lower extremity. New area of cellulitis and abscess right popliteal region. Limitations: no limitations Course Vital Signs 08/19/16 08/19/16 08/19/16 15:22 17:11 18:49 Temperature 97.7 F 98.4 F 98.6 F Pulse Rate 90 79 72 Respiratory 16 16 16 Rate Blood Pressure 117/68 132/86 124/68 O2 Sat by Pulse 98 95 99 Oximetry Procedures - Procedures Initial comment: Procedure; I&D of an abscess in the medial aspect of the right popliteal area. Patient did not notice this but is visiting nurse did. The area was cleaned well Betadine normal saline solution. Anesthetized with 1% lidocaine. A #11 blade was then used to make a stellate incision. Small amount of pus was removed cultured. The cavity created was packed with iodoform gauze approximately 14 inches.. Bandage applied. Patient had already received IV vancomycin. Dr. Kirk Medical Decision Making - Medical Decision Making Medical decision-making the patient's potassium is 4.9 BUN 30 creatinine 119 with a be GFR 60. Glucose 112 Patient had an I&D of a large abscess on the back of his right knee. He is currently being treated with doxycycline for extensive cellulitis which was improving to the right lower leg. The patient received IV vancomycin in emergency room prior to incision and drainage was done sample was taken for C& S. Patient be admitted the hospital for further management with IV Vanco - Lab Data Result diagrams: 08/19/16 15:25 Lab Results 08/19/16 Range/Units 15:25 Sodium 143 (137-145) mmol/L Potassium 4.9 (3.5-5.1) mmol/L Chloride 106 (98-107) mmol/L Carbon Dioxide 25 (22-30) mmol/L Anion Gap 12 mmol/L BUN 30 H (9-20) mg/dL Creatinine 1.19 (0.66-1.25) mg/dL Est GFR (MDRD) Af Amer >60 (>60 ml/min/1.73 sqM) Est GFR (MDRD) Non-Af >60 (>60 ml/min/1.73 sqM) Glucose 112 H (74-99) mg/dL Calcium 9.8 (8.4-10.2) mg/dL Total Bilirubin 0.6 (0.2-1.3) mg/dL AST 16 L (17-59) U/L ALT 28 (21-72) U/L Alkaline Phosphatase 71 (38-126) U/L Total Protein 8.8 H (6.3-8.2) g/dL Albumin 3.9 (3.5-5.0) g/dL Disposition Clinical Impression: Cellulitis of right leg, Abscess of popliteal region Disposition: ADMITTED IP TO THIS HOSP Condition: Stable
[2016-08-19 16:50] LABS: ALT 28 U/L (21-72); AST 16 U/L (17-59); Alkaline Phosphatase 71 U/L (38-126); Anion Gap 12 mmol/L; Blood Urea Nitrogen 30 mg/dL (9-20); Calcium 9.8 mg/dL (8.4-10.2); Carbon Dioxide 25 mmol/L (22-30); Chloride 106 mmol/L (98-107); Glucose 112 mg/dL (74-99); Non-African American GFR(MDRD) >60 (>60 ml/min/1.73 sqM); Potassium 4.9 mmol/L (3.5-5.1); Sodium 143 mmol/L (137-145); Total Bilirubin 0.6 mg/dL (0.2-1.3); Total Protein 8.8 g/dL (6.3-8.2)
[2016-08-19] MEDS ORDERED: NALOXONE 0.4 MG/ML 1 ML VIAL IV PRN (18:55)
[2016-08-19 20:52] LABS: Glucose,Whole Blood 91 mg/dL (75-99)
[2016-08-19 20:55] VITALS: BMI 34.4
[2016-08-20] MEDS: VANCOMYCIN 2,000 MG in SODIUM CHLORIDE 0.9% 500 ML IVPB SCH ×2 (05:11→16:59)
[2016-08-20] MEDS: ACETAMINOPHEN TAB 325 MG TAB PO PRN (05:11)
[2016-08-20 07:10] LABS: Glucose,Whole Blood 114 mg/dL (75-99)
[2016-08-20] MEDS: SODIUM CHLORIDE 0.9% 1,000 ML IV SCH ×3 (08:45→21:43)
[2016-08-20 11:18] LABS: Anion Gap 9 mmol/L; Blood Urea Nitrogen 21 mg/dL (9-20); Calcium 9.3 mg/dL (8.4-10.2); Carbon Dioxide 27 mmol/L (22-30); Chloride 103 mmol/L (98-107); Glucose 123 mg/dL (74-99); Non-African American GFR(MDRD) >60 (>60 ml/min/1.73 sqM); Potassium 4.7 mmol/L (3.5-5.1); Sodium 139 mmol/L (137-145)
[2016-08-20 12:38] LABS: Glucose,Whole Blood 118 mg/dL (75-99)
[2016-08-20 13:56] LABS: Basophils # (A) 0.1 k/uL (0-0.2); Basophils % (A) 2 %; CH 26.9; CHCM 31.5; Eosinophils # (A) 0.2 k/uL (0-0.7); Eosinophils % (A) 3 %; HCT 40.5 % (39.0-53.0); HGB 12.8 gm/dL (13.0-17.5); Luc # (Auto) 0.25; Luc % (Auto) 3; Lymphocytes # (A) 2.3 k/uL (1.0-4.8); Lymphocytes % (A) 32 %; MCH 27.1 pg (25.0-35.0); MCHC 31.7 g/dL (31.0-37.0); MCV 85.4 fL (80.0-100.0); Monocytes # (A) 0.4 k/uL (0-1.0); Monocytes % (A) 6 %; Neutrophils % (A) 54 %; RBC 4.74 m/uL (4.30-5.90); RDW 14.3 % (11.5-15.5); WBC 7.4 k/uL (3.8-10.6); WBC (Perox) 7.49
--- NOTE | 2016-08-20 13:56 | HP ---
DATE OF ADMISSION: Patient is a 36-year-old mentally challenged, was brought in by mother because of increasing cellulitis of the right lower extremity along with abscess in the right popliteal site area, which was drained in ER and postsurgically packed and patient was started on vancomycin. Patient does not appear to have any fevers, chills. I do not have any CBC available at this point of time, which was ordered and patient apparently was sent home on doxycycline with improvement and patient does have multiple skin breakdowns and bilateral lower limb chronic venostasis, definitely high risk for recurrent cellulitis. Patient does have localized of temperature along with edema of the bilateral lower extremities. I did not appreciate any inguinal lymphadenopathy. Home medications include Silver-Silver sulfadiazine cream. ROS: Unable to obtain due to his clinical condition except for those mentioned. PAST MEDICAL HISTORY: CVA/TIA, diabetes mellitus. Patient is on oral hyperglycemic agents for that. SOCIAL HISTORY: Patient apparently is a smoker. Denied any alcohol abuse or any drug abuse. FAMILY HISTORY: Mother has type 2 diabetes mellitus. PHYSICAL EXAMINATION: Temperature 97.2, pulse of 65, respiratory rate of 20, blood pressure is 115/69, saturating at 93% on room air. GENERAL: The patient is alert, unable to assess orientation. HEENT: Pupils are round and equally reacting to light. EOMI. No scleral icterus. No conjunctival pallor. Normocephalic, atraumatic. No pharyngeal erythema. No thyromegaly. CARDIOVASCULAR: S1 and S2 present. No murmurs, rubs, or gallops. PULMONARY: Chest is clear to auscultation, no wheezing or crackles. ABDOMEN: Soft, nontender, nondistended, normoactive bowel sounds. No palpable organomegaly. MUSCULOSKELETAL: No joint swelling or deformity. EXTREMITIES: No cyanosis, clubbing, or pedal edema. NEUROLOGICAL: Gross neurological examination did not reveal any focal deficits. Right lower extremity extensive cellulitis of the right lower extremity with chronic venostasis dermatosis along with edema of the bilateral lower extremities. In the right popliteal fossa there is an abscess that was drained and patient has extensive cellulitis predominantly in the right lower extremity with localized of temperature and edema. LABORATORY DATA: I only have basic metabolic profile available. Borderline kidney function with creatinine 1.16 and BUN of 21. I cannot really assess for CKD yet. ASSESSMENT AND PLAN: 1. Abscess in the right popliteal foci along with cellulitis, extensive to of the right lower extremity. Patient was started on vancomycin. I will consult Infectious Disease because of recurrence of cellulitis and patient will need extensive and good local wound care. I will stop the IV fluids as patient is not severely septic at this point of time and patient has pedal edema. He may even need Lasix and compression socks as edema precipitates his cellulitis due to chronic venostasis and dermatosis. 2. Bilateral lower extremity cellulitis, probably due to chronic venostasis due to obesity and venostasis dermatosis secondary to that. 3. Type 2 diabetes mellitus, mild acute renal failure, which probably improved by now with IV fluids. 4. Morbid obesity. 5. Developmental delay with supportive care. Continue with antibiotics. Consult Infectious Disease, local wound care. Check white blood cell count. MTDD
[2016-08-20] MEDS: HEPARIN SODIUM,PORCINE 5,000 UNIT/ML 1 ML VIAL SQ SCH ×2 (16:59→23:54)
[2016-08-20] MEDS: metFORMIN 500 MG TAB PO SCH (21:43)
[2016-08-21] MEDS ORDERED: VANCOMYCIN TROUGH DUE 1 EACH MISC MISCELLANE ONE (05:00)
[2016-08-21 05:41] LABS: CH 26.9; HCT 42.9 % (39.0-53.0); HDW 2.53; HGB 13.6 gm/dL (13.0-17.5); MCH 26.7 pg (25.0-35.0); MCHC 31.7 g/dL (31.0-37.0); MCV 84.2 fL (80.0-100.0); Mean Platelet Volume 6.5; RBC 5.09 m/uL (4.30-5.90); RDW 14.2 % (11.5-15.5); WBC 9.5 k/uL (3.8-10.6)
[2016-08-21] MEDS: VANCOMYCIN 2,000 MG in SODIUM CHLORIDE 0.9% 500 ML IVPB SCH (05:41)
[2016-08-21 05:54] LABS: Anion Gap 10 mmol/L; Blood Urea Nitrogen 19 mg/dL (9-20); Calcium 9.5 mg/dL (8.4-10.2); Carbon Dioxide 25 mmol/L (22-30); Chloride 105 mmol/L (98-107); Glucose 117 mg/dL (74-99); Non-African American GFR(MDRD) >60 (>60 ml/min/1.73 sqM); Potassium 4.6 mmol/L (3.5-5.1); Sodium 140 mmol/L (137-145)
--- NOTE | 2016-08-21 07:50 | CONS ---
DATE OF CONSULTATION: 08/20/2016 REASON FOR CONSULTATION: Right lower extremity cellulitis and abscess. HISTORY OF PRESENT ILLNESS: The patient is a 36-year-old male previously evaluated by myself in January of 2016. The patient was treated for right lower extremity wound and secondary cellulitis. He did have a wound culture, did come back for multiple pathogen including MSSA and the patient was treated and discharged home on oral Augmentin and the follow up visit in the office, overall cellulitis has resolved. Patient again was admitted to the [facility] from August 03, through August 08 under the care of Dr. Dickerson for severe cellulitis of the right lower extremity. It is unclear what IV antibiotic he received here; however, subsequently discharged home on doxycycline 100 mg twice a day. The patient has been evaluated by the home care nurse and noticed to have significant swelling and redness of his right leg with a painful lump in the right popliteal fossa with concern for underlying abscess. The patient has been sent to the ER for evaluation of the same. Patient had been evaluated by the ER physician. The patient did have an I&D of that abscess done by the ER physician. Culture has been obtained. The patient will be started on vancomycin, admitted to the hospital and I was asked to see the patient for further recommendation. Patient is not a very good historian because of underlying developmental delay to see exactly when it started and how it started. He did have some dull pain limited to and drainage from it. Denies having any chest pain or shortness of breath or cough. No abdominal pain or any diarrhea. REVIEW OF SYSTEMS: Could not be reliably obtained. The positive ones as mentioned in the HPI. PAST MEDICAL HISTORY: Type 2 diabetes mellitus, developmental delay, sleep apnea, severe UTI and right lower extremity cellulitis. PAST SURGICAL HISTORY: No major surgery. SOCIAL HISTORY: Positive for smoking. No drinking or drug use. FAMILY HISTORY: No pertinent findings were noticed. Allergies to BACTRIM. Medications currently include the patient is on vancomycin, pharmacy to dose, Silvadene, Narcan, Glucophage, heparin and Tylenol. On examination, blood pressure is 129/74 with a pulse of 65, temperature 98.4. He is 93% on room air. General description is a middle-age male, lying in bed in no distress. HEENT EXAMINATION: No pallor, scleral icterus. Oral mucous membrane is dry. NECK: Trachea central. There is no thyromegaly. LUNGS: Unlabored breathing. Clear to auscultation. No wheeze or crackle. HEART: S1, S2, regular rate and rhythm. ABDOMEN: Soft. No tenderness. Right leg with redness and swelling and some dry scaly skin. No evidence of athlete's foot with a wound on the right popliteal area that is currently packed. NEUROLOGICAL: Patient awake, alert, and oriented x3. Mood and affect normal. LABS: Hemoglobin is 12.8, white count 7.4, BUN of 21, creatinine is 1.16. Blood culture so far negative. The wound culture is currently pending. DIAGNOSTIC IMPRESSION AND PLAN: Patient with right lower extremity recurrent cellulitis with an abscess on the popliteal area, likely from gram-positive skin desmond that has failed outpatient doxycycline therapy with a question of possible methicillin-resistant Staphylococcus aureus or strep. PLAN: 1. Vancomycin pharmacy to dose with a target trough of 15. 2. Silvadene cream to the leg, followed by an Sarath to keep the swelling down. 3. Will follow up on the clinical condition and cultures to further adjust the medication if needed. Thank you for this consultation. Will follow this patient along with you. LONNIE
[2016-08-21] MEDS: ACETAMINOPHEN TAB 325 MG TAB PO PRN (08:05)
[2016-08-21] MEDS: HEPARIN SODIUM,PORCINE 5,000 UNIT/ML 1 ML VIAL SQ SCH ×3 (08:05→23:13)
[2016-08-21] MEDS: metFORMIN 500 MG TAB PO SCH ×2 (08:08→21:39)
[2016-08-21] MEDS: SODIUM CHLORIDE 0.9% 1,000 ML IV SCH (08:09)
--- NOTE | 2016-08-21 14:29 | PN ---
A 36-year-old admitted for right popliteal abscess which was drained and patient has extensive cellulitis of the right lower extremity with skin breakdown. Patient is ( ) and patient is on vancomycin which is being continued and awaiting wound cultures. REVIEW OF SYSTEMS: CARDIOVASCULAR: No chest pain, no orthopnea, no PND, no palpitations. PULMONARY: Denied any shortness of breath. No cough or hemoptysis. GASTROINTESTINAL: No diarrhea, nausea or vomiting. No abdominal pain. Normoactive bowel sounds. NEUROLOGIC: No headaches, no weakness, no numbness. Medications were reviewed. PHYSICAL EXAMINATION: VITAL SIGNS: Temperature 96.8, pulse of 60, respiratory rate of 20, blood pressure is 118/69, saturating at 96% on room air. GENERAL: The patient is alert and oriented x3, not in any acute distress. Well developed, well nourished. HEENT: Pupils are round and equally reacting to light. EOMI. No scleral icterus. No conjunctival pallor. Normocephalic, atraumatic. No pharyngeal erythema. No thyromegaly. CARDIOVASCULAR: S1 and S2 present. No murmurs, rubs, or gallops. PULMONARY: Chest is clear to auscultation, no wheezing or crackles. ABDOMEN: Soft, nontender, nondistended, normoactive bowel sounds. No palpable organomegaly. MUSCULOSKELETAL: No joint swelling or deformity. EXTREMITIES: Right lower extremity, no significant change as compared to yesterday. NEUROLOGICAL: Gross neurological examination did not reveal any focal deficits. SKIN: No rashes. LABORATORY DATA: No leukocytosis. ASSESSMENT AND PLAN: 1. Right popliteal abscess. 2. Cellulitis of the right lower extremity. 3. Chronic venostasis dermatosis of bilateral lower extremity. 4. Morbid obesity. 5. Type 2 diabetes mellitus. 6. Developmental delay. PLAN: Continue with antibiotics. Continue with local wound care. Possibility of discharge on oral antibiotics tomorrow once we get the wound cultures for sensitivities.
[2016-08-21] MEDS: VANCOMYCIN 1,750 MG in SODIUM CHLORIDE 0.9% 250 ML IVPB SCH (17:38)
[2016-08-22] MEDS: VANCOMYCIN 1,750 MG in SODIUM CHLORIDE 0.9% 250 ML IVPB SCH (05:54)
--- NOTE | 2016-08-22 06:11 | PN ---
DATE OF SERVICE: 08/21/2016 Reason for followup is right lower extremity wound and cellulitis. INTERVAL HISTORY: The patient is afebrile. Has been breathing comfortably. Denies significant chest pain, shortness of breath or cough. No abdominal pain. Only pain is in the right leg area. On examination, blood pressure is 121/65 with a pulse of 79, temperature of 98.4. He is 94% on room air. General description is a middle-age male lying in bed in no distress. RESPIRATORY SYSTEM: Unlabored breathing. Clear to auscultation anteriorly. HEART: S1, S2. Regular rate and rhythm. ABDOMEN: Soft, no tenderness. Right leg overall swelling has slightly improved. Wound remains packed. No drainage. LABS: Hemoglobin is 13.6, white count 9.5 with a BUN of 19, creatinine 1.16. Wound culture currently pending. DIAGNOSTIC IMPRESSION AND PLAN: Patient with right lower extremity wound cellulitis and abscess, status post drainage. Culture currently pending. The patient will continue on vancomycin while awaiting for the culture to finalize. Continue supportive care.
[2016-08-22 07:55] VITALS: BP 122/73; PULSE 68; RESP 18; TEMP 97.4
[2016-08-22] MEDS: HEPARIN SODIUM,PORCINE 5,000 UNIT/ML 1 ML VIAL SQ SCH (08:52)
[2016-08-22] MEDS: metFORMIN 500 MG TAB PO SCH (08:52)
[2016-08-22 11:47] LABS: Anion Gap 12 mmol/L; Blood Urea Nitrogen 18 mg/dL (9-20); Calcium 9.7 mg/dL (8.4-10.2); Carbon Dioxide 27 mmol/L (22-30); Chloride 101 mmol/L (98-107); Glucose 134 mg/dL (74-99); Non-African American GFR(MDRD) >60 (>60 ml/min/1.73 sqM); Potassium 4.5 mmol/L (3.5-5.1); Sodium 140 mmol/L (137-145)
--- NOTE | 2016-08-22 12:58 | PN ---
DATE OF SERVICE: 08/22/2016 Reason for followup is right lower extremity wound with cellulitis. INTERVAL HISTORY: The patient is afebrile. Has been breathing comfortably. Denies any chest pain or shortness of breath or cough. No abdominal pain or any pain in her right leg area. On examination, blood pressure is 122/73 with a pulse of 68, temperature 97.4. He is 93% on room air. General description is a middle-age male lying in bed in no distress. RESPIRATORY SYSTEM: Unlabored breathing. Clear to auscultation anteriorly. HEART: S1, S2. Regular rate and rhythm. ABDOMEN: Soft. No tenderness. Right leg overall swelling and redness have improved. Wound remains to be packed. No obvious drainage. LABS: Hemoglobin is 13.6, white count 9.5 with a BUN of 19, creatinine 1.16. Cultures so far negative. DIAGNOSTIC IMPRESSION AND PLAN: Patient with right lower extremity wound with cellulitis and an abscess, status post drainage. Culture has been negative. Previous culture has been positive for Staphylococcus aureus, methicillin-susceptible Staphylococcus aureus . At this time, the patient is on vancomycin. Will be planning to finish therapy with Augmentin 875 b.i.d. for another 2 weeks with outpatient followup. Continue supportive care. LONNIE
--- NOTE | 2016-08-23 09:16 | DS ---
DATE OF ADMISSION: 08/19/2016 DATE OF DISCHARGE: 08/22/2016 The patient is admitted with a right popliteal abscess, which was drained. Cultures are so far negative. Patient has bilateral lower limb venostasis and right lower limb cellulitis with skin breakdowns for which patient will need local wound care. Patient was evaluated by Infectious Disease and patient will be discharged today. Patient has improvement in his cellulitis. Patient will need extensive local wound care and good education. [facility] will follow the patient and patient's blood sugars are essentially within normal limits. Patient is on metformin 500 b.i.d. Patient has CKD stage II, probably from diabetic nephropathy. Patient will be discharged today in stable medical condition to home. Patient was seen and examined on the day of discharge. FINAL DIAGNOSES: 1. Right popliteal abscess. 2. Cellulitis of the right lower extremity. 3. Chronic venostasis dermatosis. 4. Morbid obesity. 5. Type 2 diabetes mellitus. 6. Chronic kidney disease, stage II from diabetic nephropathy. 7. Developmental delay. Please refer to my depart summary for further details of discharge medication. Patient is being discharged on Augmentin for 14 days. Patient will follow with Dr. Shivam Becerra in one week; Dr. Brianne Dillon in 3 to 7 days. Activity as tolerated. Cardiac diet. I spent greater than 35 minutes in total discharge process.
== END 2016-08-22 14:41 | disposition home health service (06) | DRG 603 ==
LOC: EC 15:13 → 4MS4W 18:55
PROVIDERS: ADMIT Internal Medicine; ATTEND Internal Medicine
PROC: 0H9KXZZ Drainage of Right Lower Leg Skin, External Approach (ICD-10-PCS; principal; 2016-08-19)
DX: L03.115 Cellulitis of right lower limb (principal); N17.9 Acute kidney failure, unspecified; E11.21 Type 2 diabetes mellitus with diabetic nephropathy; E66.01 Morbid (severe) obesity due to excess calories; L03.116 Cellulitis of left lower limb; E11.22 Type 2 diabetes mellitus with diabetic chronic kidney disease; F17.200 Nicotine dependence, unspecified, uncomplicated; G47.30 Sleep apnea, unspecified; N18.2 Chronic kidney disease, stage 2 (mild); Z86.73 Personal history of transient ischemic attack (TIA), and cerebral infarction without residual deficits; Z88.2 Allergy status to sulfonamides; F79 Unspecified intellectual disabilities
CPT/HCPCS: 10061; 36415; 80048; 80053; 80202; 85025; 85027; 87040; 87070; 87075; 87205; 96365; 96366; 99284

== ENCOUNTER → 2016-08-29 | Outpatient (CLI) | payer OTHER ==
--- NOTE | 2016-08-29 09:22 | CT ---
EXAMINATION TYPE: CT brain w con DATE OF EXAM: 08/29/2016 9:05 AM COMPARISON: Previous study dated 12/20/2013 HISTORY: fatigue for [address] DLP: 1216 mGycm Automated exposure control for dose reduction was used. CONTRAST: CT scan of the head is performed with IV Contrast, patient injected with 100 mL of Omnipaque 300. FINDINGS: There is evidence of an old lacunar infarct in the genuine of the internal capsule on the right. A se cond plaque is noted in the thalamus on the right and the third lungs in the thalamus on the left. Th ere is no acute focal lesion, mass effect or midline shift identified. I do not see evidence of intra cranial blood. There is no abnormal enhancement. Visualized portions of the paranasal sinuses and mastoids are clear. IMPRESSION: 1. No acute intracranial abnormality. 2. 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
== END | disposition home or self-care (01) ==
LOC: RADCTMAIN 08:20
PROVIDERS: ATTEND Nurse Practitioner Family
DX: R53.83 Other fatigue (principal)
CPT/HCPCS: 70460; Q9967